=== PATIENT | female | born 1950 | race Caucasian/White ===

== ENCOUNTER 2017-02-17 07:48 | Inpatient (IN) | payer OTHER, MEDICARE ==
[~2017-02-17] VITALS: Ht 149.9 cm; Wt 52.1 kg
[~2017-02-17 07:48] MED LIST: ASPI1TAB57 PO; LOVA20TA PO; LYSI500T12 PO; MECL-62 PO; MULT1LOZ BUCCAL; OXYC1TAB63 PO; VERA240C3 PO
[2017-02-17] MEDS ORDERED: CHLORHEXIDINE GLUCONATE 2 % 1 PACK (2 CLOTHS) TOPICAL PRN (08:30)
[2017-02-17] MEDS ORDERED: LACTATED RINGER'S 1000 ML IV PRN (08:30)
[2017-02-17] MEDS ORDERED: SODIUM CHLORID 0.9% 500 ML IV PRN (08:30)
[2017-02-17] MEDS ORDERED: POVIDONE IODINE 5% (ANTISEPSIS KIT) 4 APPLICATIONS EACH NARE PRN (08:30)
[2017-02-17] MEDS ORDERED: ceFAZolin 2 GM PREMIX 50 ML IV SCH (08:45)
[2017-02-17] MEDS ORDERED: POVIDONE IODINE 7.5% SCRUB 118 ML BOTTLE TOPICAL SCH (08:45)
[2017-02-17] MEDS ORDERED: VANCOMYCIN 1000 MG/NS 250 ML (for <70 kg) IV SCH ×2 (08:45)
[2017-02-17] MEDS ORDERED: GENTAMICIN SULFATE 80 MG/2 ML VIAL ONE (10:16)
[2017-02-17] MEDS ORDERED: SCOPOLAMINE 1.5 MG PATCH ONE (11:10)
[2017-02-17] MEDS ORDERED: GLYCOPYRROLATE 1 MG/5 ML SYRINGE IV PUSH ONE (12:00)
[2017-02-17] MEDS ORDERED: DEXAMETHASONE SOD PHOS 4 MG/ML VIAL IV ONE (12:00)
[2017-02-17] MEDS ORDERED: PHENYLEPH/NS 1000 MCG/10 ML SYR IV ONE (12:00)
[2017-02-17] MEDS ORDERED: ePHEDrine/NS 25 MG/5 ML SYRINGE IV ONE (12:00)
[2017-02-17] MEDS ORDERED: ONDANSETRON HCL 4 MG/2 ML VIAL IV ONE (12:00)
[2017-02-17] MEDS ORDERED: LACTATED RINGER'S 1000 ML INJ 2,000 ML IV ONE (12:00)
[2017-02-17] MEDS ORDERED: NEOSTIGMINE 5 MG/5 ML SYRINGE IV PUSH ONE (12:00)
[2017-02-17] MEDS ORDERED: MORPHINE SULFATE 30 MG/30 ML PCA IV SCH (15:00)
[2017-02-17] MEDS ORDERED: BISACODYL 10 MG SUPP RECTAL PRN (15:00)
[2017-02-17] MEDS ORDERED: MECLIZINE HCL 25 MG TAB PO PRN (15:00)
[2017-02-17] MEDS ORDERED: oxyCODONE/ACETAMINOPHEN 10 MG/325 MG TAB PO PRN (15:00)
[2017-02-17] MEDS ORDERED: SOD PHOSPHATE/SOD BIPHOSPHATE (ADULT) ENEMA 133ML PR PRN (15:00)
--- NOTE | 2017-02-17 15:13 | PD.OP ---
cc: Praful Mckeon. Operative Report Date of Surgery: Feb 17, 2017 Preoperative Diagnosis: Lumbar spinal stenosis. Lumbar instability. Right lumbosacral radiculopathy Postoperative Diagnosis: Same Procedure: Lumbar laminectomy from the right L3, L4, subtotal facet resection L3 4 right. Posterior spinal fusion, lateral transverse process technique L3 4. Posterior spinal segmental instrumentation, L3 4. Posterior lateral interbody fusion, L3 4. Placement of interbody cage. Major bone grafting of the lumbar spine Anesthesia: Gen. Surgeon: Praful Mckeon Washer Operator(s): HAYES Arroyo Operation and Findings: EBL: 200 ml NOTE: Kortney Arroyo PA-C was present for the entire surgical procedure as my list of first job ideas. In my medical opinion her skill and care was necessary for proper management of this patient INDICATIONS: Is patient is a 66-year-old female with severe back hip and leg pain. Investigative studies shows evidence of significant collapse to the right side with a lateral listhesis at L3 4 and a significant right-sided foraminal stenosis. The patient has preoperative instability and intraoperatively this will be worsened in order to accomplish the decompression. The patient presents for surgical treatment. PROCEDURE: The patient brought to the operating room and anesthetized the supine position. The patient positioned prone on the Tomasz frame on the Giuliano table. All pressure points are protected. The back was scrubbed with alcohol followed by Hibiclens followed by ChloraPrep and draped sterilely and antibiotics were given within a routine time window. A timeout was done. Lateral radiographic images used to identify the proper level for the procedure. Compared care for the preoperative studies. Skin markings were made anticipating surgical treatment. A right paramedian incision was made. The lamina and facet joint was exposed. We used a dilating retractor which was positioned over this region. The microscope was rolled into the field for visualization. A high-speed bur was used to take the lamina down and doing a subtotal facet resection. The exiting and crossing nerve roots were completely decompressed. A total discectomy was accomplished. The disc space was prepared. All cartilaginous material from the disc space was removed. A combination of demineralized bone matrix and Nucel stem cells were mixed together on the back table.. These were injected into the disc space. The cage was then placed according to dynamicist's recommendation and deployed. Position was satisfactory. Additional bone graft was placed into the disc space. The outer edge of the facet joint was identified and prepared. Under fluoroscopic images, a bur was used to gain entrance into the pedicle followed by placement of a blunt probe, an awl and placement of proper length screws. Each screw was charged with electric current there are no abnormal potentials registered in either lower extremity. A proper length cathy was fitted and attached and tightened according to dynamicist's recommendation. The wound was irrigated copiously. Bone grafting was placed along the lateral gutter in the region of the transverse process across this level. This was closed in layers with #1 Vicryl, 2-0 Vicryl and running intradermal 3-0 Vicryl followed by Steri-Strips and benzoin. On the contralateral side a separate exposure was made. The outer edge of the facet joints were identified. A bur was used to gain entrance into the pedicle followed by placement of a probe and proper length screws. Each screw was charged with electric current and no abnormal potentials registered in either lower extremity. The wound was irrigated copiously. Bone graft placed along the transverse process across this level. It was closed in layers using #1 Vicryl, 2-0 Vicryl and running intradermal 3-0 Vicryl followed by Steri-Strips and benzoin. Intraoperative radiographs were obtained. No complication was appreciated. The patient had a sterile dressing applied. The patient was awakened and taken to recovery room in satisfactory condition. FINDINGS: The patient had a significant instability at this level. This is worsened by the decompression. There was a significant foraminal stenosis with a contained disc herniation to the right at that level. We were able to correct the preoperative deformity almost completely. There was a preoperative 20 angular deformity which was decreased to less than 5. A placed the right cathy in distraction and the left cathy in compression allowing correction of this deformity. There was no complication was appreciated Praful Mckeon MD Feb 17, 2017 15:13
[2017-02-17] MEDS ORDERED: DO NOT ADM ANY ANTICOAGULANT DRUGS PRN (15:16)
[2017-02-17] MEDS: LACTATED RINGER'S 1000 ML INJ 1,000 ML IV SCH (15:19)
[2017-02-17] MEDS ORDERED: OXYC1TAB36 PO (15:24)
[2017-02-17] MEDS ORDERED: MIDAZOLAM HCL 2 MG/2 ML VIAL ONE (15:28)
[2017-02-17] MEDS ORDERED: Post-op Orders (for Pharmacy) XX ONE (15:30)
[2017-02-17] MEDS ORDERED: ALUMINUM/MAGNESIUM/SIMETH 30 ML CUP PO PRN (15:30)
[2017-02-17] MEDS ORDERED: ONDANSETRON HCL 4 MG/2 ML VIAL IV PUSH PRN (15:30)
[2017-02-17] MEDS ORDERED: NALOXONE HCL 0.4 MG/ML AMP IV PUSH PRN (15:30)
[2017-02-17 16:00] VITALS: BP 128/69; PULSE 96; RESP 18; TEMP 95.5; O2SAT 100
--- NOTE | 2017-02-17 16:50 | RADRPT ---
EXAM DATE/TIME: 02/17/2017 14:28 [facility] COMPARISON: No previous studies available for comparison. INDICATIONS : L3/4 fusion. MEDICAL HISTORY : Unobtainable. SURGICAL HISTORY : Unobtainable. ENCOUNTER: Initial ACUITY: 1 day PAIN SCORE: Non-responsive. LOCATION: Bilateral lumbar spine. FINDINGS: There is pedicle screw and cathy fixation across L3-4 with disc spacer present. No complications. Estela l alignment. CONCLUSION: 1. Fixation L3-4. Chad Mead MD on February 17, 2017 at 16:49 Board Certified Radiologist. This report was verified electronically.
[2017-02-17] MEDS: oxyCODONE/ACETAMINOPHEN 10 MG/325 MG TAB PO PRN (17:12)
[2017-02-17 20:10] VITALS: BP 129/79; PULSE 89; RESP 17; TEMP 97.8; O2SAT 100
[2017-02-17] MEDS: PCA - TOTAL MG MORPHINE DELIVERED PER SHIFT SCH (20:26)
[2017-02-17] MEDS ORDERED: ZOLPIDEM TARTRATE 5 MG TAB PO PRN (21:00)
[2017-02-17 21:02] VITALS: O2SAT 99
[2017-02-17 23:35] VITALS: BP 117/78; PULSE 91; RESP 17; TEMP 98.6; O2SAT 99
[2017-02-17 23:55] VITALS: BP 117/73; PULSE 91; RESP 17; TEMP 98.6; O2SAT 99
[2017-02-18] MEDS: PCA - TOTAL MG MORPHINE DELIVERED PER SHIFT SCH (03:45)
[2017-02-18 03:49] VITALS: BP 108/64; PULSE 85; RESP 17; TEMP 99.1; O2SAT 99
[2017-02-18] MEDS: LACTATED RINGER'S 1000 ML INJ 1,000 ML IV SCH ×2 (04:00→16:30)
[2017-02-18 04:20] LABS: HEMATOCRIT 34.3 % (35.0-46.0); HEMOGLOBIN 11.5 GM/DL (11.6-15.3)
--- NOTE | 2017-02-18 07:47 | HHI.DCPOC ---
Discharge Care Plan Diagnosis: (1) Lumbar spinal stenosis (2) Lumbar spine instability (3) Degenerative disc disease, lumbar Your Health Problems Are: Difficulty with ADL Incision/Drains Swelling Goals to Promote Your Health * To prevent worsening of your condition and complications * To maintain your health at the optimal level Directions to Meet Your Goals Take your medications as prescribed Follow your dietary instruction Follow activity as directed Keep your appointments as scheduled Take your immunizations and boosters as scheduled If your symptoms worsen call your PCP, if no PCP go to Urgent Care Center or Emergency Room Smoking is Dangerous to Your Health. Avoid second hand smoke Call the 24-hour hour crisis hotline for domestic abuse at Kortney Arroyo Feb 18, 2017 07:47
--- NOTE | 2017-02-18 07:49 | HHI.FF ---
Face to Face Verification Diagnosis: (1) Lumbar spinal stenosis (2) Degenerative disc disease, lumbar (3) Lumbar spine instability Physical Therapy Gait training, Safety evaluation, Transfer training, bed to chair S/P Spinal Fusion: Gait training with walker, Weight bearing as tolerated, No twisting of torso, No bending Additional Instructions PT 4 days/wk for 1 week. WBAT. Out of bed with brace for 10-12 weeks. Limited twisting torso. No substantial bending or lifting. Nursing RN Days per Week: 2 x Week(s): 1 Dressing Changes: Do not change dressing Additional Instructions Hold dressing changes unless saturated. Vitals assessment. I have seen patient Roxana Bush on 02/18/17. My clinical findings support the need for the requested home health care services because: Limited ability to care for self High risk of falls I certify that my clinical findings support that this patient is homebound because: Post-op weakness Unsteady gait/balance Kortney Arroyo Feb 18, 2017 07:49
[2017-02-18] MEDS ORDERED: COMMODE 3-IN-11 MIS (07:50)
[2017-02-18] MEDS ORDERED: WALKER WHEELS/F1 MIS (07:50)
--- NOTE | 2017-02-18 07:51 | HHI.DS ---
Discharge Summary Admission Date Feb 17, 2017 at 07:48 Discharge Date: Feb 19, 2017 Admitting Diagnosis see below Diagnosis: (1) Lumbar spine instability Diagnosis: Principal ICD Codes: M53.2X6 - Spinal instabilities, lumbar region (2) Degenerative disc disease, lumbar Diagnosis: Principal ICD Codes: M51.36 - Other intervertebral disc degeneration, lumbar region (3) Lumbar spinal stenosis Diagnosis: Principal ICD Codes: M48.061 - Spinal stenosis, lumbar region without neurogenic claudication Procedures Right laminectomy L34, subtotal facet resection, posterior lumbar fusion L34 with interbody cage, bone graft Brief History This is a 66 year old female patient CBC/BMP: 02/18/17 0340 Significant Findings Laboratory Tests Test 02/18/17 03:40 Hemoglobin 11.5 GM/DL (11.6-15.3) Hematocrit 34.3 % (35.0-46.0) Hospital Course C pod#3 percocet 10. Brace Pt Condition on Discharge: Stable Discharge Disposition: Disch w/ Home Health Serv Discharge Instructions Diet Instructions: As Tolerated, No Restrictions, High Fiber Diet Activities You Can Perform: See Additionl Instruction Activities to Avoid: Strenuous Activity Additional Activity Instruc.: Brace on full-time when out of bed New Medications: Commode 3-in-1 (Commode 3-in-1) 1 Mis Mis EA .ROUTE DIRECTED, #1 0 Refills Walker with Front Wheels (Walker with Front Wheels) 1 Mis Mis EA .ROUTE DIRECTED, #1 0 Refills Oxycodone HCl/Acetaminophen (Oxycodone-Acetaminophen 10-325) 10 Mg-325 Mg Tablet 1 TAB PO Q4H PRN for PAIN, #50 TAB Continued Medications: Aspirin DR (Aspirin 81) 81 Mg Tabdr 81 MG PO DAILY, TAB 0 Refills Lovastatin (Lovastatin) 20 Mg Tab 20 MG PO DAILY for Cholesterol Management, #30 TAB 0 Refills Lysine HCl (Lysine) 500 Mg Tab 500 MG PO DAILY Meclizine (Meclizine) 25 Mg Tab 25 MG PO TID PRN for VERTIGO, TAB 0 Refills Multiple Vitamins W/ Minerals (Airborne) 1 Thanh 1 LOZENGE BUCCAL QID for Nutritional Supplement, #1 PACK 0 Refills Oxycodone-Acetaminophen (Oxycodone-Acetaminophen) 5-325 mg Tab 1 TAB PO Q4H PRN for PAIN, TAB 0 Refills Verapamil SR (Verapamil SR) 240 Mg Cap 240 MG PO DAILY, #30 CAP 0 Refills Kortney Arroyo Feb 18, 2017 07:51
--- NOTE | 2017-02-18 07:55 | PD.ORT.PN ---
Subjective Subjective Remarks Sitting on commode during interview. Many questions about brace and activity. Moderate back pain with sharp spasms. No new leg pain. Denies CP or SOB. Not ready for d/c today. Objective Vitals Vital Signs Date Time Temp Pulse Resp B/P (MAP) Pulse Ox O2 Delivery O2 Flow Rate FiO2 02/18/17 03:49 99.1 85 17 108/64 (79) 99 02/18/17 03:45 16 02/17/17 23:55 98.6 91 17 117/73 (88) 99 02/17/17 21:02 99 Nasal Cannula 2.00 02/17/17 20:40 Nasal Cannula 2.00 02/17/17 20:26 16 02/17/17 20:10 97.8 89 17 129/79 (96) 100 02/17/17 16:30 82 16 125/62 (83) 99 Nasal Cannula 2 02/17/17 16:15 81 16 123/63 (83) 100 Nasal Cannula 2 02/17/17 16:00 87 16 119/62 (81) 99 Nasal Cannula 2 02/17/17 16:00 95.5 96 18 128/69 (88) 100 02/17/17 15:53 16 02/17/17 15:45 92 16 116/58 (77) 98 Nasal Cannula 2 02/17/17 15:30 92 16 130/59 (82) 98 Nasal Cannula 2 02/17/17 15:19 98.3 104 16 147/67 (93) 98 Nasal Cannula 2 02/17/17 08:26 99.0 83 20 147/79 (101) 99 I/O 02/17/17 02/17/17 02/17/17 02/18/17 02/18/17 02/18/17 07:00 15:00 23:00 07:00 15:00 23:00 Intake Total 2000 ml 580 ml 480 ml Output Total 1400 ml 750 ml 1200 ml Balance 600 ml -170 ml -720 ml Intake Oral 580 ml 480 ml IV Total 2000 ml Output Urine Total 200 ml 750 ml 1200 ml Estimated Blood Loss 200 ml Other 1000 ml # Bowel Movements 0 0 Result Diagram: 02/18/17 0340 Procedures Right laminectomy L34, subtotal facet resection, posterior lumbar fusion L34 with interbody cage, bone graft Objective Remarks Sitting on commode NAD VSS L/S Dressing intact, mild ss drainage, some spasms, warmth but no erythema +motor at bilat, +sens, +nvi Neg homans bilat Assessment & Plan Ortho Post Op Day #: 1 Problem List: (1) Lumbar spine instability ICD Codes: M53.2X6 - Spinal instabilities, lumbar region (2) Degenerative disc disease, lumbar ICD Codes: M51.36 - Other intervertebral disc degeneration, lumbar region (3) Lumbar spinal stenosis ICD Codes: M48.061 - Spinal stenosis, lumbar region without neurogenic claudication Qualifiers: Qualified Codes: M48.062 - Spinal stenosis, lumbar region with neurogenic claudication Assessment and Plan pod#1 s/p Lami/Fusion L34 Ortho stable. D/C wire wheeler - change to po pain meds. Hold dressing changes unless saturated. WBAT. Out of bed with brace for 10-12 weeks. No strenuous activity. Ambulate daily w walker. IS encouraged. D/C planning, likely Home w [facility] tomorrow. F/U in 2 weeks as scheduled. F2F written. Kortney Arroyo Feb 18, 2017 07:55
[2017-02-18 08:00] VITALS: BP 133/67; PULSE 83; RESP 19; TEMP 98.8; O2SAT 98
[2017-02-18] MEDS ORDERED: LYSINE 500 MG PO SCH (09:00)
[2017-02-18] MEDS ORDERED: LYSINE HCL 500 MG PO SCH (09:00)
[2017-02-18] MEDS: VERAPAMIL HCL 240 MG SUSTAINED RELEASE TAB PO SCH (09:01)
[2017-02-18] MEDS: PRAVASTATIN SOD 20 MG TAB PO SCH (09:01)
[2017-02-18 12:00] VITALS: BP 132/67; PULSE 85; RESP 20; TEMP 98.5; O2SAT 96
[2017-02-18] MEDS: oxyCODONE/ACETAMINOPHEN 10 MG/325 MG TAB PO PRN ×2 (13:39→17:49)
[2017-02-18 16:00] VITALS: BP 107/56; PULSE 84; RESP 18; TEMP 99.4; O2SAT 97
[2017-02-18 20:00] VITALS: BP 114/55; PULSE 88; RESP 20; TEMP 98.5; O2SAT 97
[2017-02-18] MEDS: DOCUSATE SODIUM 100 MG CAP PO SCH (21:00)
[2017-02-19] VITALS: BP 153/69; PULSE 81; RESP 20; TEMP 98.8; O2SAT 95
[2017-02-19] MEDS: oxyCODONE/ACETAMINOPHEN 10 MG/325 MG TAB PO PRN ×3 (00:25→13:19)
[2017-02-19] MEDS: LACTATED RINGER'S 1000 ML INJ 1,000 ML IV SCH (05:00)
[2017-02-19 08:00] VITALS: BP 122/61; PULSE 79; RESP 18; TEMP 98.8; O2SAT 95
--- NOTE | 2017-02-19 08:27 | PD.ORT.PN ---
Subjective Post Op Day #: 2 Subjective Remarks pain controlled. doing well. Objective Vitals Vital Signs Date Time Temp Pulse Resp B/P (MAP) Pulse Ox O2 Delivery O2 Flow Rate FiO2 02/19/17 00:00 98.8 81 20 153/69 (97) 95 02/18/17 20:00 98.5 88 20 114/55 (74) 97 02/18/17 16:00 99.4 84 18 107/56 (73) 97 02/18/17 12:00 98.5 85 20 132/67 (88) 96 I/O 02/18/17 02/18/17 02/18/17 02/19/17 02/19/17 02/19/17 07:00 15:00 23:00 07:00 15:00 23:00 Intake Total 480 ml 600 ml 480 ml Output Total 1200 ml Balance -720 ml 600 ml 480 ml Intake Oral 480 ml 600 ml 480 ml Output Urine Total 1200 ml # Voids 4 4 # Bowel Movements 0 0 Result Diagram: 02/18/17 0340 Procedures Right laminectomy L34, subtotal facet resection, posterior lumbar fusion L34 with interbody cage, bone graft Objective Remarks Sitting in chair, eating NAD VSS L/S Dressing intact, mild ss drainage, no erythema +motor at bilat, +sens, +nvi Neg homans bilat Assessment & Plan Ortho Post Op Day #: 2 Problem List: (1) Lumbar spine instability ICD Codes: M53.2X6 - Spinal instabilities, lumbar region (2) Degenerative disc disease, lumbar ICD Codes: M51.36 - Other intervertebral disc degeneration, lumbar region (3) Lumbar spinal stenosis ICD Codes: M48.061 - Spinal stenosis, lumbar region without neurogenic claudication Qualifiers: Qualified Codes: M48.062 - Spinal stenosis, lumbar region with neurogenic claudication Assessment and Plan pod#2 s/p Lami/Fusion L34 Ortho stable. po pain meds. Hold dressing changes unless saturated. WBAT. Out of bed with brace for 10-12 weeks. No strenuous activity. Ambulate daily w walker. IS encouraged. D/C planning, Home w c tomorrow. cleared when arrangements in place F/U in 2 weeks as scheduled. F2F written. Pio Robles Feb 19, 2017 08:27
[2017-02-19] MEDS: VERAPAMIL HCL 240 MG SUSTAINED RELEASE TAB PO SCH (08:36)
[2017-02-19] MEDS: PRAVASTATIN SOD 20 MG TAB PO SCH (08:36)
[2017-02-19] MEDS: DOCUSATE SODIUM 100 MG CAP PO SCH (08:36)
[2017-02-19 12:00] VITALS: BP 103/65; PULSE 75; RESP 18; TEMP 97.1; O2SAT 95
== END 2017-02-19 13:33 | disposition home or self-care (01) | DRG 460 ==
LOC: HSDI 07:48 → N06A 16:44
PROVIDERS: ADMIT Orthopaedic Surgery Orthopaedic Surgery of the Spine; ATTEND Orthopaedic Surgery Orthopaedic Surgery of the Spine
PROC: 01NB0ZZ Release Lumbar Nerve, Open Approach (ICD-10-PCS; 2017-02-17)
PROC: 0ST20ZZ Resection of Lumbar Vertebral Disc, Open Approach (ICD-10-PCS; 2017-02-17)
PROC: 0QU00KZ Supplement Lumbar Vertebra with Nonautologous Tissue Substitute, Open Approach (ICD-10-PCS; 2017-02-17)
PROC: 0SG00AJ Fusion of Lumbar Vertebral Joint with Interbody Fusion Device, Posterior Approach, Anterior Column, Open Approach (ICD-10-PCS; principal; 2017-02-17 11:26)
DX: M48.062 Spinal stenosis, lumbar region with neurogenic claudication (principal); M53.2X6 Spinal instabilities, lumbar region; M54.17 Radiculopathy, lumbosacral region; M51.36 Other intervertebral disc degeneration, lumbar region
CPT/HCPCS: 72100; 76000; 85014; 85018; 86850; 86900; 86901; 94150; C1713; J0690; J1100; J1580; J2250; J2270; J2370; J2405; J2710; J3010; J3370; J7050; J7120